=== PATIENT | male | born 1990 | race African-American/Black ===

== ENCOUNTER 2020-10-23 15:37 | Emergency (ER) | payer OTHER ==
[~2020-10-23] VITALS: Ht 177.8 cm; Wt 140.6 kg
--- NOTE | 2020-10-23 15:48 | NUR ---
NO BED AVAILABLE AT THIS TIME. PT AGREED TO WAIT OUSIDE THE ER, NO SIGN OF DISTRESS. PT TALKING TO SOME BODY OVER THE PHONE, SANDWICH BAG PROVIDED FOR PER REQUEST.
--- NOTE | 2020-10-23 16:08 | NUR ---
PT BROUGHT INTO ROOM 3.
[2020-10-23] MEDS ORDERED: CLONIDINE HCL 0.2 MG TABLET PO ONE (16:15)
[2020-10-23] MEDS ORDERED: CLONIDINE HCL 0.2 MG TABLET ONE (16:23)
[2020-10-23 16:27] VITALS: BP 181/89
[2020-10-23 16:27] LABS: *BILIRUBIN,URIN NEGATIVE (NEGATIVE); *BLOOD, URINE NEGATIVE (NEGATIVE); *CLARITY,URINE CLEAR (CLEAR); *COLOR,URINE YELLOW (YELLOW); *KETONES,URINE NEGATIVE (NEGATIVE); *UROBILINOGEN,URINE 0.2 E.U./dl (NORMAL); LEUKOCYTE ESTERASE ,URINE NEGATIVE (NEGATIVE); NITRITE, URINE NEGATIVE (NEGATIVE); PH,URINE 5.5 (5.0-8.0); UGLUCOSE NEGATIVE (NEGATIVE)
[2020-10-23 16:40] LABS: *AMPHETAMINE, URINE POSITIVE (NEGATIVE); *CANNABINOID, URINE POSITIVE (NEGATIVE); *COCCAINE, URINE NEGATIVE (NEGATIVE); *OPIATE, URINE POSITIVE (NEGATIVE); *PHENCYCLIDINE SCREEN,URINE NEGATIVE (NEGATIVE)
[2020-10-23 16:46] LABS: MEAN CORPUSCULAR VOLUME 86.4 fL (73.0-96.2)
[2020-10-23 16:57] LABS: ETHANOL < 3 MG/DL (0-0)
[2020-10-23 17:01] LABS: BASOPHILS % (AUTO) 0.6 % (0.0-2.0); EOSINOPHILS # (AUTO) 0.2 K/uL (0.0-0.7); EOSINOPHILS % (AUTO) 2.6 % (0.0-7.0); HEMATOCRIT 41.4 % (36.7-47.1); HEMOGLOBIN 13.7 g/dL (12.5-16.3); LYMPHOCYTES # (AUTO) 1.7 K/uL (20.0-40.0); LYMPHOCYTES % (AUTO) 27.6 % (20.5-51.5); MEAN CORPUSCULAR HEMOGLOBIN 28.6 uug (23.8-33.4); MEAN CORPUSCULAR HGB CONC 33 g/dL (32.5-36.3); MONOCYTES # (AUTO) 0.6 K/uL (2.0-10.0); MONOCYTES % (AUTO) 9.9 % (0.0-11.0); NEUTROPHILS # (AUTO) 3.6 K/uL (1.8-8.9); NEUTROPHILS % (AUTO) 59.3 % (38.5-71.5); PLATELET COUNT (AUTO) 272 K/uL (152-348); RED BLOOD CELL COUNT(AUTO) 4.79 MIL/uL (4.06-5.63)
[2020-10-23 17:02] LABS: ALANINE AMINOTRANSFERASE 38 U/L (16-63); ALKALINE PHOSPHATASE 60 U/L (50-136); ASPARTATE AMINOTRANSFERASE 45 U/L (15-37); BILIRUBIN,DIRECT 0.2 mg/dL (0.0-0.2); BILIRUBIN,TOTAL 0.8 mg/dL (0.2-1.0); CARBON DIOXIDE 27 mmol/L (21-32); CHLORIDE 101 mmol/L (98-107); CREATININE 1.8 mg/dL (0.6-1.3); GLUCOSE 98 mg/dL (74-106); POTASSIUM 3.6 mmol/L (3.5-5.1); TOTAL PROTEIN, SERUM 8.2 g/dL (6.4-8.2); UREA NITROGEN, BLOOD 19 mg/dL (7-18)
[2020-10-23 17:03] LABS: ACETAMINOPHEN < 2.0 ug/mL (10-30)
--- NOTE | 2020-10-23 17:19 | NUR ---
Per pt is medically clear for psych eval. Called Rocio who stated to call back when the COVID-19 result is back.
--- NOTE | 2020-10-23 17:41 | NUR ---
Per lab COVID antigen result is negative, called Rocio who stated she will come in to eval the pt.
--- NOTE | 2020-10-23 18:45 | NUR ---
Pinky at bedside for psych eval.
--- NOTE | 2020-10-23 19:15 | NUR ---
RECEIVED REPORT FROM LOKESH YU. LALA EVALUATING PT
[2020-10-23] MEDS ORDERED: LORAZEPAM 0.5 MG TABLET PO ONE ×2 (21:00→22:00)
[2020-10-23] MEDS ORDERED: LORAZEPAM 0.5 MG TABLET ONE ×2 (21:04→22:10)
--- NOTE | 2020-10-23 21:19 | NUR ---
Administered ativan 1mg PO per patient request approved by DR. ANTON VÁSQUEZ. Patient inquired about pending admission to psychiatric facility. Checked chart and notified patient information about his current situation was sent to [facility].
--- NOTE | 2020-10-23 21:56 | NUR ---
Patient is pacing in his room, talking to himself, and appears restless.
--- NOTE | 2020-10-23 22:09 | NUR ---
Administered 1mg Ativan PO with full glass of water, monitoring patient.
--- NOTE | 2020-10-23 22:27 | NUR ---
ANABELL FROM [facility] CALLED . TO INFORM US THAT [facility] HAS BEEN ACCEPTED, HOWEVER NO BEDS AVAILABLE AT THIS TIME, THAT POSSIBLY TOMORROW MORNING AFTER THEY HAVE DISCHARGES THEY WILL CALL FOR PT TO BE TRANSPORTED.
[2020-10-24] MEDS ORDERED: OLANZAPINE 5 MG TABLET PO ONE (00:15)
[2020-10-24] MEDS ORDERED: OLANZAPINE 5 MG TABLET ONE (00:21)
--- NOTE | 2020-10-24 02:33 | NUR ---
Patient is speaking to themselves, became agitated, began yelling, and punched the wall of his room. Security was notified and with the patient right now. Dr. WALTON notified.
[2020-10-24] MEDS ORDERED: diphenhydrAMINE 50 MG/1 ML VIAL ONE (02:42)
[2020-10-24] MEDS ORDERED: HALOPERIDOL LACTATE 5 MG/1 ML VIAL ONE (02:43)
[2020-10-24] MEDS ORDERED: HALOPERIDOL LACTATE 5 MG/1 ML VIAL IM ONE (02:45)
[2020-10-24] MEDS ORDERED: diphenhydrAMINE 50 MG/1 ML VIAL IM ONE (02:45)
--- NOTE | 2020-10-24 02:48 | NUR ---
PT REFUSED HALDOL/BENADRYL IM INJECTION, AND DECIDED TO LEAVE AND ELOPED. PT AMBULATED W/O DIFF/TOOK ALL BELONGINGS.
--- NOTE | 2020-10-24 05:23 | NUR ---
TALKED TO TIERRA VIA PHONE FROM [facility] TO INFORM THAT THE PT DECIDED TO GO HOME IN A TAXI.
--- NOTE | 2020-10-25 17:41 | NUR ---
the summer travissult came back to be positive, no number available to call.
== END 2020-10-24 02:28 | disposition left against medical advice (07) ==
LOC: ER 15:39
DX: F31.9 Bipolar disorder, unspecified (principal); R45.851 Suicidal ideations; Z59.0 Homelessness; U07.1 COVID-19; R00.0 Tachycardia, unspecified
CPT/HCPCS: 71045; 80048; 80076; 80299; 80307; 80320; 81003; 85025; 87426; 93005; 99285; U0003; A4663; G0480; J1200; J1630